=== PATIENT | male | born 1985 | race Caucasian/White ===

== ENCOUNTER 2020-06-10 20:41 | Emergency (ER) | payer SELFPAY ==
[~2020-06-10] VITALS: Ht 177.8 cm; Wt 86.4 kg
[2020-06-10 21:20] VITALS: BP 132/64
--- NOTE | 2020-06-10 21:49 | PHYS DOC ---
Past Medical History Past Medical History: No Pertinent History Past Surgical History: Other Additional Past Surgical Histo: BACK SURGERY Smoking Status: Current Every Day Smoker Alcohol Use: None General Adult EDM: Chief Complaint: MULTIPLE COMPLAINTS HPI: HPI: Patient is a 34 year old male who presents to the ED today complaining of 8 out of 10 left lower gum dental pain for 2 days. Patient denies any fever. States the pain causes a mild headache. He states he has an appointment with the dental school in July. Review of Systems: Review of Systems: Constitutional: Denies fever or chills. [] GI: reports nausea, vomiting, Musculoskeletal: Denies back pain or joint pain. [] Integument: Denies rash. [] Neurologic: Denies headache, focal weakness or sensory changes. [] Endocrine: Denies polyuria or polydipsia. [] Lymphatic: Denies swollen glands. [] Psychiatric: Denies depression or anxiety. [] Heart Score: C/O Chest Pain: N/A Risk Factors: Risk Factors: DM, Current or recent (<one month) smoker, HTN, HLP, family history of CAD, obesity. Risk Scores: Score 0 - 3: 2.5% MACE over next 6 weeks - Discharge Home Score 4 - 6: 20.3% MACE over next 6 weeks - Admit for Clinical Observation Score 7 - 10: 72.7% MACE over next 6 weeks - Early Invasive Strategies Current Medications: Current Medications Medications (Trade) Dose Ordered Sig/Jigar Start Time Stop Time Status Last Admin Dose Admin Amoxicillin (Amoxil) 500 mg 1X ONCE 06/10/20 21:45 06/10/20 21:46 DC Naproxen (Naprosyn) 500 mg 1X STAT 06/10/20 21:33 06/10/20 21:35 DC Ondansetron HCl (Zofran Odt) 4 mg 1X ONCE 06/10/20 21:45 06/10/20 21:46 DC Allergies: Allergies: Allergies Coded Allergies Type Severity Reaction Last Updated Verified No Known Drug Allergies 06/10/20 No Physical Exam: PE: Constitutional: Well developed, well nourished, no acute distress, non-toxic appearance. [] HENT: Normocephalic, atraumatic, bilateral external ears normal, oropharynx moist, no oral exudates, nose normal. [] Severe dental decay noted with multiple missing teeth. Dental abscess noted on the left lower gum. Abscess is small with no fluctuance. Erythema noted on the left lower gum Skin: Warm, dry, no erythema, no rash. [] Back: No tenderness, no CVA tenderness. [] Extremities: No tenderness, no cyanosis, no clubbing, ROM intact, no edema. [] Neurologic: Alert and oriented X 3, normal motor function, normal sensory function, no focal deficits noted. [] Psychologic: Affect normal, judgement normal, mood normal. [] Current Patient Data: Vital Signs: Vital Signs Date Time Temp Pulse Resp B/P (MAP) Pulse Ox O2 Delivery O2 Flow Rate FiO2 06/10/20 21:20 99.4 104 20 132/64 (86) 96 Room Air 99.4 EKG: EKG: [] Radiology/Procedures: Radiology/Procedures: [] Course & Med Decision Making: Course & Med Decision Making Pertinent Labs and Imaging studies reviewed. (See chart for details) This is a 34-year-old male patient with dental abscess and severe dental decay. At an appointment with the dental clinic/dental school in July. Was discharged on amoxicillin Edison Disclaimer: Edison Disclaimer: This electronic medical record was generated, in whole or in part, using a voice recognition dictation system. Departure Departure Impression: Primary Impression: Dentalgia Additional Impression: Dental abscess Disposition: 01 HOME / SELF CARE / HOMELESS Condition: STABLE Referrals: NO PCP (PCP) follow up with your dentist or dental school in July Patient Instructions: Dental Abscess Additional Instructions: You were seen for dental pain. Please follow-up with the dental school as scheduled in July. Complete your antibiotics Scripts Ondansetron (ONDANSETRON ODT) 4 Mg Tab.rapdis 1 TAB PO PRN Q6-8HRS, #16 TAB Prov: PANTERA IBARRA [employer] 06/10/20 Diclofenac Potassium (DICLOFENAC POTASSIUM) 50 Mg Tablet 1 TAB PO BID, #20 TAB 0 Refills Prov: PANTERA IBARRA [employer] 06/10/20 Amoxicillin (AMOXICILLIN) 875 Mg Tablet 1 TAB PO BID, #20 TAB Prov: PANTERA IBARRA [employer] 06/10/20 PANTERA IBARRA [employer]ER Jun 10, 2020 21:49
[2020-06-10] MEDS ORDERED: DICL50TA2 PO (21:53)
[2020-06-10] MEDS ORDERED: AMOX875T PO (21:53)
[2020-06-10] MEDS ORDERED: ONDA4TAB12 PO (21:54)
[2020-06-10] MEDS: AMOXICILLIN 250 MG CAPSULE. PO ONE (22:07)
[2020-06-10] MEDS: NAPROXEN 500 MG TABLET PO STA (22:07)
[2020-06-10] MEDS: ONDANSETRON ODT 4 MG TAB.RAPDIS. PO ONE (22:07)
== END 2020-06-10 22:10 | disposition home or self-care (01) ==
LOC: ER 20:41
DX: K04.7 Periapical abscess without sinus (principal); F17.200 Nicotine dependence, unspecified, uncomplicated
CPT/HCPCS: 99284